=== PATIENT | male | born 1965 | race Caucasian/White ===

== ENCOUNTER 2017-02-17 19:41 | Emergency (ER) | payer SELFPAY ==
[2017-02-17] MEDS ORDERED: NO HOME MEDICATION (19:54)
[2017-02-17] MEDS ORDERED: NORCO 5-325 TA1 EACH PO (21:09)
== END 2017-02-17 21:29 ==
LOC: EDMED 19:41
DX: S46.911A Strain of unspecified muscle, fascia and tendon at shoulder and upper arm level, right arm, initial encounter (principal); S60.222A Contusion of left hand, initial encounter; W10.9XXA Fall (on) (from) unspecified stairs and steps, initial encounter